=== PATIENT | male | born 1945 | race Caucasian/White ===

== ENCOUNTER 2020-12-11 08:55 | Emergency (ER) | payer SELFPAY ==
[~2020-12-11 08:55] MED LIST: CIPRODEX OTIC7.5 ML AS
[2020-12-11 10:04] LABS: BASOPHIL 0.7 % (0-2); HCT 40.2 % (42.0-52.0); HGB 13.6 g/dl (13.2-18.0); LYMPHOCYTE 26.3 % (15-48); MCH 30.4 pg (25.0-31.0); MCHC 33.8 g/dL (32.0-36.0); MCV 89.9 fL (78.0-100.0); MONOCYTE 8.5 % (0-12); MPV 9.6 fL (6.0-9.5); NEUTROPHIL 62.1 % (41-80); NRBC 0; PLT 230 K/uL (150-400); RBC 4.47 M/uL (4.70-6.00); RDW 12.8 % (11.5-14.0); WBC 5.4 K/uL (4.0-10.5)
[2020-12-11 10:08] LABS: INR 0.97 (0.9-1.2); PROTHROMBIN TIME 12.3 SECONDS (11.8-13.4); PTT 27.5 SECONDS (24.4-34.7)
[2020-12-11 10:29] LABS: ALBUMIN 3.6 g/dL (3.4-5.0); BILIRUBIN - TOTAL 0.7 mg/dL (0.2-1.0); BUN/CREAT RATIO (CALC) 28.6 RATIO; CREATININE 0.7 mg/dL (0.67-1.17); MAGNESIUM 1.9 mg/dL (1.8-2.4); POTASSIUM 4.1 mmol/L (3.5-5.1); TOTAL PROTEIN 7.6 g/dL (6.4-8.2)
[2020-12-11 10:38] LABS: PRO-BNP 132 pg/mL (<125)
[2020-12-11] MEDS ORDERED: ANTIVERT25 MG PO (14:00)
[2020-12-11] MEDS ORDERED: AMOXICILLIN875 MG PO (14:00)
[2020-12-11] MEDS ORDERED: ONDANSETRON ODT4 MG PO (14:00)
== END 2020-12-11 14:52 | disposition home or self-care (01) ==
LOC: FER 08:55
PROVIDERS: Emergency Medicine
DX: H83.02 Labyrinthitis, left ear (principal); E11.9 Type 2 diabetes mellitus without complications; I10 Essential (primary) hypertension
CPT/HCPCS: 36415; 70450; 70551; 71045; 80053; 82550; 83735; 83880; 84145; 84484; 85025; 85610; 85730; 93005; J1170; J2060; J2405; J7030